=== PATIENT | female | born 1980 | race Caucasian/White ===

== ENCOUNTER 2023-07-11 15:50 | Outpatient (CLI) | payer OTHER, SELFPAY ==
--- NOTE | 2023-07-11 14:20 | DI.RAD_ITS ---
Exam(s) XR KNEE RT 3V AP,LAT,GILLIAN XR KNEE LT 3V AP,LAT,GILLIAN EXAM: XR KNEE LT 3V AP,LAT,GILLIAN CLINICAL HISTORY: BILAT KNEE PAIN. TECHNIQUE: 2D digital imaging was performed. Three views of both knees. COMPARISON: CR XR KNEE RT 3V AP,LAT,GILLIAN from 07/11/2023 FINDINGS: BONES: No acute fracture is present. No bony destructive lesion is seen. JOINTS: The knee is normally aligned. No joint effusion is seen. The joint spaces are maintained th roughout. No significant periarticular spurring. SOFT TISSUE: Normal. IMPRESSION: Normal radiographs of both knees. DATA REPOSITORY: RADIATION DOSE DELIVERED:
== END 2023-07-11 15:51 | disposition home or self-care (01) ==
LOC: DIORS 15:50
PROVIDERS: Visit Provider Student in an Organized Health Care Education/Training Program
DX: M25.561 Pain in right knee (principal); M25.562 Pain in left knee
CPT/HCPCS: 73562